=== PATIENT | male | born 1945 | race Caucasian/White ===

== ENCOUNTER 2020-04-27 08:00 | Day surgery (SDC) | payer OTHER ==
[~2020-04-27] VITALS: Ht 180.3 cm; Wt 71.9 kg
[2020-04-27] MEDS ORDERED: METAMUCIL POWD575 GM (08:40)
== END 2020-04-27 10:03 | disposition home or self-care (01) ==
LOC: ORSCSDS 08:00
PROVIDERS: Surgery
PROC: 0DBH8ZX Excision of Cecum, Via Natural or Artificial Opening Endoscopic, Diagnostic (ICD-10-PCS; principal; 2020-04-27 09:15)
DX: Z12.11 Encounter for screening for malignant neoplasm of colon (principal); Z86.010 Personal history of colon polyps; D12.0 Benign neoplasm of cecum; K57.30 Diverticulosis of large intestine without perforation or abscess without bleeding; Z79.899 Other long term (current) drug therapy
CPT/HCPCS: 88305; J2704; J7120

== ENCOUNTER 2024-10-12 09:08 | Day surgery (SDC) | payer OTHER ==
[2024-10-12] VITALS (23 sets, daily range): BP systolic 68–129; BP diastolic 39–97
[~2024-10-12] VITALS: Ht 176 cm; Wt 74.3 kg
[~2024-10-12 09:08] MED LIST: GLUCHON PO; METAMUCIL POWD575 GM; TAMS.4ER PO; Vitamin D1000 UNI1 PO; [UNRECOGNIZED DRUG - OTHER] PO
[2024-10-12] MEDS ORDERED: OxyCODONE HCL 10 MG TABCR PO SCH (10:15)
[2024-10-12] MEDS ORDERED: Chlorhexidine Mouth Care 15 ML UDC MT SCH (10:15)
[2024-10-12] MEDS ORDERED: Lactated Ringer's 1,000 ML IV SCH ×2 (10:15→13:45)
[2024-10-12] MEDS ORDERED: CeFAZolin Sodium 2,000 MG in NS 100 ML IV SCH ×2 (10:15→20:00)
[2024-10-12] MEDS ORDERED: Acetaminophen 500 MG Tab PO SCH ×2 (10:15→16:00)
[2024-10-12] MEDS ORDERED: Tranexamic Acid 100 ML IV SCH (10:21)
--- NOTE | 2024-10-12 10:37 | NUR ---
Ambulatory in Day Surgery. PATIENT WITH PROTHETIC TO RIGHT LEG. History, Chart, Medications and Allergies reviewed before start of procedure.Patient confirms NPO status and agrees with scheduled surgery. Patient reports completing Chlorhexadine shower X2 prior to admission to hospital.Surgical site prepped with 2% Chlorhexidine cloth wipe. NOSIN ADMINISERED TO BILATERAL NARES.
[2024-10-12] MEDS ORDERED: Midazolam HCl 1MG / ML 2ML Vial ONE (10:41)
[2024-10-12] MEDS ORDERED: propofoL 60 ML IV ONE (10:42)
[2024-10-12] MEDS ORDERED: Ropivacaine 0.5% HCl/Pf 123.125 MG,EPINEPHrine HCL 0.25 MG,Ketorolac Tromethamine 15 MG... INFIL SCH (11:00)
[2024-10-12] MEDS ORDERED: Ondansetron HCl 2 MG / ML 2ML Vial ONE (11:30)
[2024-10-12] MEDS ORDERED: Ketorolac Tromethamine 30mg Vial ONE (11:30)
[2024-10-12] MEDS ORDERED: Dexamethasone Sod Phos 10 MG/ML 1ML VIAL ONE (11:30)
[2024-10-12] MEDS ORDERED: Phenylephrine HCl 100 MCG/ML-NS 10MLSYR (1MG/10ML) ONE ×2 (11:31→12:40)
[2024-10-12] MEDS ORDERED: FentaNYL Citrate 50 MCG/ML 2 ML Injection IV PRN ×2 (12:10)
[2024-10-12] MEDS ORDERED: Ondansetron HCl 2 MG / ML 2ML Vial IV PRN ×2 (12:10→13:45)
[2024-10-12] MEDS ORDERED: HYDROmorphone HCl/Pf 1MG SYR IV PRN ×3 (12:10→13:40)
[2024-10-12] MEDS ORDERED: propofoL 40 ML IV ONE (12:21)
[2024-10-12] MEDS ORDERED: ePHEDrine Sulfate 50 MG/ML 1ML Injection IV SCH (13:30)
[2024-10-12] MEDS ORDERED: DiphenhydrAMINE HCL 25 MG Cap PO PRN (13:40)
[2024-10-12] MEDS ORDERED: Bisacodyl 10 MG Supp PR PRN (13:40)
[2024-10-12] MEDS ORDERED: Promethazine HCl 25 MG Tab PO PRN (13:45)
[2024-10-12] MEDS ORDERED: OxyCODONE HCL 5 MG TAB PO PRN ×2 (13:45)
[2024-10-12] MEDS ORDERED: Magnesium Hydroxide Conc 10 ML UDC PO PRN (13:45)
[2024-10-12] MEDS ORDERED: Metoclopramide HCl 5MG / ML 2ML Vial IV PRN (13:45)
[2024-10-12] MEDS ORDERED: ePHEDrine Sulfate 50 MG/ML 1ML Injection ONE (13:58)
--- NOTE | 2024-10-12 14:43 | NUR ---
PT TO ROOM 215 FROM PACU. FANTASMA/SCD ON SURGICAL LEG. POLAR PACK ON. SENSATION TO KNEE BUT UNABLE TO WIGGLE TOES. TXA STARTED PER COLLAR SETTER OVERLOCK. IV PRESENT RIGHT HAND. VSS. WILL CONTINUE TO MONITOR.
[2024-10-12] MEDS ORDERED: Ketorolac Tromethamine 15mg Vial IV SCH (18:00)
[2024-10-12] MEDS ORDERED: Docusate Sodium 100 MG Cap PO SCH (21:00)
[2024-10-13 00:03] VITALS: BP 110/61
--- NOTE | 2024-10-13 04:36 | NUR ---
NOC SUMMARY- PT PAIN MANAGED WELL. PT EATING AND DRINKING. PT HAS NOT VOIDED THIS SHIFT. PT BLADDER SCAN SHOWED >400ML. PT STRIGHT CATH WITH 400 ML REMOVED. PT REPORTS HISTORY OF URINE RETENTION POST OP FROM OTHER SURGERY. PT EATING AND DRINKING. CALL LIGHT IN REACH.
[2024-10-13 05:02] LABS: BASOPHILS ABSOLUTE AUTO 0.01 K/mm3 (0.00-0.23); BASOPHILS PERCENT AUTO 0 % (0-2); EOSINOPHILS PERCENT AUTO 0 % (0-6); Hematocrit 35.1 % (37.0-53.0); Hemoglobin 11.9 g/dL (13.5-17.5); IMMATURE GRAN ABSOLUTE AUTO 0.04 K/mm3 (0.00-0.10); IMMATURE GRAN PERCENT AUTO 0 % (0-1); LYMPHOCYTES ABSOLUTE AUTO 0.87 K/mm3 (0.84-5.20); LYMPHOCYTES PERCENT AUTO 7 % (21-46); MONOCYTES PERCENT AUTO 9 % (4-13); Mean Corpuscular HGB 30.4 pg (26.0-34.0); Mean Corpuscular HGB Conc 33.9 g/dL (31.5-36.5); Mean Corpuscular Volume 90 fL (80-100); Mean Platelet Volume 10.1 fL (9.1-12.4); NEUTROPHILS ABSOLUTE AUTO 10.82 K/mm3 (1.96-9.15); NEUTROPHILS PERCENT AUTO 84 % (41-73); Platelet Count 208 K/mm3 (150-400); RDW Coefficient Variation 13.4 % (11.7-14.2); RDW Standard Deviation 44.4 fL (35.1-46.3); Red Blood Cell Count 3.92 M/mm3 (4.30-5.90); White Blood Cell Count 12.84 K/mm3 (4.00-11.30)
[2024-10-13 05:23] LABS: Bun/Creatinine Ratio 20.3 (12.0-20.0); Calcium, Blood 8.3 mg/dL (8.5-10.1); Creatinine, Blood 1.38 mg/dL (0.60-1.20); Magnesium, Blood 2.1 mg/dL (1.6-2.4); Potassium, Blood 4.1 mmol/L (3.5-5.5)
[2024-10-13 07:18] VITALS: BP 133/71
[2024-10-13] MEDS ORDERED: ACET500 PO (08:32)
[2024-10-13] MEDS ORDERED: ASPI81CH PO (08:33)
[2024-10-13] MEDS ORDERED: DOCU100 PO (08:34)
[2024-10-13] MEDS ORDERED: OXYC5 PO (08:36)
[2024-10-13] MEDS ORDERED: Tamsulosin HCl 0.4 MG Cap PO SCH (09:00)
[2024-10-13] MEDS ORDERED: Aspirin 81 MG Chew PO SCH (09:00)
--- NOTE | 2024-10-13 11:55 | NUR ---
DISCHARGE SUMMARY PT TOLERATING FLUIDS AND FOOD WELL. PAIN CONTROLLED WELL. WORKED WITH THERAPY. PT WAS UNABLE TO VOID POST OP. DISCHARGED WITH S[place] INSERTED. MADE FOLLOW UP APPOINTMENT WITH PCP FOR SATURDAY. EXPLAINED AND DEMONSTRATED S[place]HER[place] OVERNIGHT BAG AND LEG BAG CARE. EXPLAINED IMPORTANCE OF S[place]HERLAND CLEANLINESS, USING ALCOHOL SWABS AND PROTECTING SURGICAL SITE FROM URINE. DISCHARGE EDUCATION REVIEWED AND ESCORTED OUT VIA WC.
== END 2024-10-13 11:55 | disposition home or self-care (01) ==
LOC: ORSCMMR 09:08 → ORD 09:08 → ORSCMMR 09:10 → ORD 09:30 → ORSCMMR 10:30 → SURS 14:28 → ORSCMMR 10-13 11:55
PROVIDERS: Orthopaedic Surgery
PROC: 0SRD0JA Replacement of Left Knee Joint with Synthetic Substitute, Uncemented, Open Approach (ICD-10-PCS; principal; 2024-10-12 11:30)
DX: M17.12 Unilateral primary osteoarthritis, left knee (principal); Z87.891 Personal history of nicotine dependence; Z79.899 Other long term (current) drug therapy
CPT/HCPCS: 27447; 0055T; 36415; 73560-LT; 80048; 83735; 85025; 94760; 97110; 97116; 97161; 97530; A9270; C1713; C1776; J0171; J0690; J0735; J1100; J1885; J2250; J2371; J2405; J2704; J2795; J7120

== ENCOUNTER 2024-10-15 21:06 | Emergency (ER) | payer OTHER ==
[~2024-10-15] VITALS: Ht 182.9 cm; Wt 76.7 kg
[~2024-10-15 21:06] MED LIST changes: +ACET500 PO; +ASPI81CH PO; +DOCU100 PO; +OXYC5 PO
[2024-10-15 21:59] VITALS: BP 141/56
[2024-10-15] MEDS ORDERED: Lidocaine 2% Jelly Uro-Jet UR ONE (23:45)
== END 2024-10-16 00:46 | disposition home or self-care (01) ==
LOC: ER 21:06
DX: R33.9 Retention of urine, unspecified (principal)
CPT/HCPCS: 51702; 51798; 99283-25